=== PATIENT | female | born 1990 | race Caucasian/White ===

== ENCOUNTER 2021-03-25 23:51 | Observation (INO) | payer BC | END 2021-03-26 00:53 | disposition home or self-care (01) | LOC: JD.OB 23:51 → UNDOADMOB 23:51 → JD.OB 23:57 | PROVIDERS: ADMIT Obstetrics & Gynecology; ATTEND Obstetrics & Gynecology | DX: O99.891 Other specified diseases and conditions complicating pregnancy (principal); R39.15 Urgency of urination; R35.0 Frequency of micturition; Z3A.30 30 weeks gestation of pregnancy | CPT/HCPCS: 59025; 81001; 84112 ==

== ENCOUNTER 2021-04-19 11:27 | Inpatient (IN) | payer BC ==
[2021-04-19] MEDS ORDERED: Ondansetron 4 MG/2 ML SDV IVPUSH PRN ×2 (11:44→17:57)
[2021-04-19] MEDS ORDERED: Nalbuphine 10 MG/1 ML Vial IVPUSH PRN (11:44)
[2021-04-19] MEDS ORDERED: Misoprostol 100 MCG Tab VAG STA (11:44)
[2021-04-19] MEDS ORDERED: Sodium Chloride 0.9% 10 ML Syringe FLUSH PRN (11:44)
[2021-04-19] MEDS ORDERED: Oxytocin/Lactated Ringers 10 UNIT/1,000 ML BAG IV SCH ×2 (11:45)
[2021-04-19] MEDS ORDERED: Misoprostol 25 MCG (1/4 of 100 MCG) Tab VAG ONE (12:25)
[2021-04-19] MEDS: Lactated Ringers 1,000 ML IV SCH ×2 (14:19→16:21)
[2021-04-19] MEDS ORDERED: Acetaminophen 325 MG Tab PO ONE (14:30)
[2021-04-19] MEDS ORDERED: Metoclopramide 10 MG/2 ML SDV IVPUSH ONE (16:15)
[2021-04-19] MEDS ORDERED: Azithromycin 500 MG in Sodium Chloride 0.9% 250 ML IV ONE (16:15)
[2021-04-19] MEDS ORDERED: Citric Acid/Sodium Citrate Solution 30 ML Cup PO ONE (16:15)
[2021-04-19] MEDS ORDERED: ceFAZolin 2 GM in Sodium Chloride 0.9% 100 ML IV STA (16:19)
[2021-04-19] MEDS ORDERED: ceFAZolin 2 GM in Premix Bag 1 BAG IV STA (16:19)
[2021-04-19] MEDS ORDERED: Morphine PF 10 MG/10 ML SDV ONE (16:20)
[2021-04-19] MEDS ORDERED: Lactated Ringers 1,000 ML ONE (16:21)
[2021-04-19] MEDS ORDERED: Ketorolac 30 MG/ML SDV ONE (16:21)
[2021-04-19] MEDS ORDERED: Ondansetron 4 MG/2 ML SDV ONE (16:21)
[2021-04-19] MEDS ORDERED: Oxytocin 10 Units/1 ML SDV ONE (16:21)
[2021-04-19] MEDS ORDERED: ceFAZolin 1 GM Vial ONE (16:21)
[2021-04-19] MEDS ORDERED: fentaNYL 100 MCG/2 ML SDV IVPUSH PRN (17:57)
[2021-04-19] MEDS ORDERED: Meperidine 50 MG/ML Vial IVPUSH PRN (17:57)
[2021-04-19] MEDS ORDERED: diphenhydrAMINE 50 MG/ML SDV IVPUSH PRN ×2 (17:57→18:53)
[2021-04-19] MEDS ORDERED: Ondansetron 4 MG/2 ML SDV IV PRN (18:53)
[2021-04-19] MEDS ORDERED: Naloxone 0.4 MG/ML SDV IVPUSH PRN (18:53)
[2021-04-19] MEDS ORDERED: Acetaminophen/oxyCODONE 325-5 MG Tab PO PRN (18:53)
[2021-04-19] MEDS ORDERED: Dextrose 5%-Lactated Ringers 1,000 ML IV SCH (18:53)
[2021-04-19] MEDS ORDERED: Sodium Chloride 0.9% 10 ML Syringe FLUSH SCH (21:00)
[2021-04-19] MEDS: Ketorolac 30 MG/ML SDV IVPUSH SCH (23:35)
[2021-04-20] MEDS: Ketorolac 30 MG/ML SDV IVPUSH SCH ×2 (05:37→11:14)
[2021-04-20] MEDS: Docusate Sodium 100 MG Cap PO PRN ×2 (14:07→21:11)
[2021-04-20] MEDS: Acetaminophen/oxyCODONE 325-5 MG Tab PO PRN ×2 (14:07→21:11)
[2021-04-20] MEDS: Ibuprofen 600 MG Tab PO PRN (17:28)
[2021-04-21] MEDS: Acetaminophen/oxyCODONE 325-5 MG Tab PO PRN ×2 (09:09→21:39)
[2021-04-21] MEDS: Docusate Sodium 100 MG Cap PO PRN ×2 (09:09→21:39)
[2021-04-21] MEDS: Simethicone 80 MG Tab.Chew PO SCH ×4 (09:09→21:39)
[2021-04-21] MEDS: Ibuprofen 600 MG Tab PO PRN (12:21)
[2021-04-22] MEDS: Ibuprofen 600 MG Tab PO PRN (08:58)
[2021-04-22] MEDS: Simethicone 80 MG Tab.Chew PO SCH ×2 (08:58→12:17)
[2021-04-22] MEDS ORDERED: Bisacodyl 10 MG Supp RECTAL ONE (09:52)
== END 2021-04-22 13:00 | disposition home or self-care (01) | DRG 540 ==
LOC: JD.OBCHECK 11:27 → JD.OB 11:30 → JD.OBCHECK 11:51 → JD.OB 11:52 → OBSVTOIN 17:12 → JD.OB 17:13
PROVIDERS: ADMIT Obstetrics & Gynecology; ATTEND Obstetrics & Gynecology
PROC: 10D00Z1 Extraction of Products of Conception, Low, Open Approach (ICD-10-PCS; principal; 2021-04-19)
DX: O42.92 Full-term premature rupture of membranes, unspecified as to length of time between rupture and onset of labor (principal); Z37.0 Single live birth; O99.02 Anemia complicating childbirth; D62 Acute posthemorrhagic anemia; O76 Abnormality in fetal heart rate and rhythm complicating labor and delivery; R14.0 Abdominal distension (gaseous); O99.892 Other specified diseases and conditions complicating childbirth; Z20.822 Contact with and (suspected) exposure to COVID-19; Z3A.37 37 weeks gestation of pregnancy
CPT/HCPCS: 01961; 36415; 59025; 80053; 85027; 86592; 86850; 86900; 86901; 94762; A9270-GY; J0456; J0690; J1885; J2274; J2405; J2590; J2765; J7050; J7120; J7121; U0002

== ENCOUNTER 2022-01-13 19:36 | Emergency (ER) | payer BC ==
[2022-01-13] MEDS ORDERED: Bacitracin/Neomycin/Polymyxin B Oint 15 GM Tube TOP ONE (20:17)
== END 2022-01-13 20:39 | disposition home or self-care (01) ==
LOC: JD.ED 19:36
DX: T23.102A Burn of first degree of left hand, unspecified site, initial encounter (principal); X11.8XXA Contact with other hot tap-water, initial encounter; Y93.G3 Activity, cooking and baking
CPT/HCPCS: 99283

== ENCOUNTER 2023-08-30 21:04 | Observation (INO) | payer BC ==
[2023-08-30 21:31] LABS: APPEARANCE,URINE CLEAR (Clear); BILIRUBIN,URINE NEGATIVE (Negative); COLOR,URINE LIGHT YELLOW (Yellow); GLUCOSE,URINE NEGATIVE (Negative); KETONES,URINE NEGATIVE (Negative); LEUKOCYTE ESTERASE,URINE NEGATIVE (Negative); NITRITE,URINE NEGATIVE (Negative); OCCULT BLOOD,URINE NEGATIVE (Negative); PROTEIN,URINE NEGATIVE (Negative); UROBILINOGEN,URINE 0.2 (0.2-1.0)
[2023-08-30 21:44] LABS: BACTERIA,URINE RARE /hpf (FEW); MUCUS,URINE NOT SEEN /hpf (FEW); RBC,URINE 0-5 /hpf (0-5); SQUAMOUS EPITHELIAL CELLS,UR 0-5 /hpf (0-5); WBC,URINE 0-5 /hpf (0-5)
[2023-08-30] MEDS ORDERED: Sodium Chloride 0.9% 10 ML Syringe FLUSH PRN (22:02)
[2023-08-30 22:13] LABS: BASOPHILS PERCENT AUTO 0.4 % (0.0-1.0); EOSINOPHILS PERCENT AUTO 0.3 % (0.0-6.0); HEMATOCRIT 33.4 % (37.0-47.0); HEMOGLOBIN 11.3 gm/dl (12.0-16.0); IMMATURE GRAN ABSOLUTE AUTO 0.04 K/mm3 (0.00-0.05); IMMATURE GRAN PERCENT AUTO 0.4 % (0.0-0.4); LYMPHOCYTES ABSOLUTE AUTO 1.6 K/mm3 (1.0-4.8); LYMPHOCYTES PERCENT AUTO 16.3 % (24.0-44.0); MEAN CORPUSCULAR HEMOGLOBIN 29.4 pg (28.0-32.0); MEAN CORPUSCULAR HGB CONC 33.8 g/dl (32.0-36.0); MEAN CORPUSCULAR VOLUME 86.8 fl (83.0-99.0); MEAN PLATELET VOLUME 10.1 fl (9.4-12.3); MONOCYTES ABSOLUTE AUTO 0.7 K/mm3 (0.0-0.8); MONOCYTES PERCENT AUTO 6.9 % (0.0-8.0); NEUTROPHILS ABSOLUTE AUTO 7.6 K/mm3 (1.8-7.7); NEUTROPHILS PERCENT AUTO 75.7 % (41.0-71.0); PLATELET COUNT,PLT 175 K/mm3 (150-400); RED BLOOD CELL COUNT 3.85 M/mm3 (4.10-5.30); WHITE BLOOD CELL COUNT,WBC 10.06 K/mm3 (3.9-11.3)
[2023-08-30] MEDS: Lactated Ringers 1,000 ML IV SCH (22:22)
[2023-08-30] MEDS: HYDROmorphone 1 MG/ML Syringe IV ONE (22:34)
[2023-08-30 22:36] LABS: A/G RATIO 0.7 (1-2); ALBUMIN 2.7 g/dl (3.4-5.0); ANION GAP 14.9 (5-15); BILIRUBIN TOTAL 0.2 mg/dL (0.2-1.0); CALCIUM 9.7 mg/dL (8.5-10.1); CREATININE 0.5 mg/dL (0.55-1.02); EST CRCL DRUG DOSING (CG) 138.19 mL/min; POTASSIUM,K 3.9 mEq/L (3.5-5.1); PROTEIN TOTAL,TP 6.8 g/dl (6.4-8.2)
[2023-08-31] MEDS ORDERED: HYDROmorphone 1 MG/ML Syringe IM ONE (02:05)
[2023-08-31] MEDS: Ondansetron 4 MG/2 ML SDV IVPUSH ONE (02:19)
[2023-08-31] MEDS: HYDROmorphone 1 MG/ML Syringe IV ONE (02:44)
[2023-08-31] MEDS: Ondansetron 4 MG/2 ML SDV IVPUSH PRN (07:28)
[2023-08-31 07:32] LABS: BASOPHILS PERCENT AUTO 0.2 % (0.0-1.0); EOSINOPHILS PERCENT AUTO 0.1 % (0.0-6.0); HEMATOCRIT 31.4 % (37.0-47.0); HEMOGLOBIN 10.4 gm/dl (12.0-16.0); IMMATURE GRAN ABSOLUTE AUTO 0.04 K/mm3 (0.00-0.05); IMMATURE GRAN PERCENT AUTO 0.5 % (0.0-0.4); LYMPHOCYTES ABSOLUTE AUTO 1.2 K/mm3 (1.0-4.8); LYMPHOCYTES PERCENT AUTO 13.5 % (24.0-44.0); MEAN CORPUSCULAR HEMOGLOBIN 29.1 pg (28.0-32.0); MEAN CORPUSCULAR HGB CONC 33.1 g/dl (32.0-36.0); MEAN CORPUSCULAR VOLUME 87.7 fl (83.0-99.0); MEAN PLATELET VOLUME 9.7 fl (9.4-12.3); MONOCYTES ABSOLUTE AUTO 0.5 K/mm3 (0.0-0.8); MONOCYTES PERCENT AUTO 5.8 % (0.0-8.0); NEUTROPHILS ABSOLUTE AUTO 6.9 K/mm3 (1.8-7.7); NEUTROPHILS PERCENT AUTO 79.9 % (41.0-71.0); PLATELET COUNT,PLT 152 K/mm3 (150-400); RED BLOOD CELL COUNT 3.58 M/mm3 (4.10-5.30); WHITE BLOOD CELL COUNT,WBC 8.67 K/mm3 (3.9-11.3)
[2023-08-31 07:53] LABS: A/G RATIO 0.6 (1-2); ALBUMIN 2.3 g/dl (3.4-5.0); ANION GAP 11.7 (5-15); BILIRUBIN TOTAL 0.2 mg/dL (0.2-1.0); BUN/CREATININE RATIO 16.7 (14-18); CALCIUM 8.6 mg/dL (8.5-10.1); CREATININE 0.3 mg/dL (0.55-1.02); EST CRCL DRUG DOSING (CG) 230.32 mL/min; POTASSIUM,K 3.7 mEq/L (3.5-5.1)
[2023-08-31] MEDS: HYDROmorphone 1 MG/ML Syringe IVPUSH PRN (11:32)
[2023-08-31] MEDS ORDERED: Acetaminophen/oxyCODONE 325-5 MG Tab PO PRN (12:58)
[2023-08-31] MEDS: Docusate Sodium 100 MG Cap PO SCH (15:03)
[2023-08-31] MEDS: Sodium Chloride 0.9% 10 ML Syringe FLUSH SCH (15:04)
[2023-08-31] MEDS: Acetaminophen 325 MG Tab PO PRN (15:29)
[2023-08-31 16:30] LABS: AMYLASE 63 U/L (25-115); LIPASE 48 U/L (16-77)
[2023-08-31] MEDS ORDERED: Promethazine 25 MG Supp RECTAL PRN (17:42)
[2023-08-31] MEDS: Acetaminophen 650 MG Supp RECTAL PRN (18:12)
[2023-08-31 19:02] LABS: INR 0.96; PROTHROMBIN TIME 10.2 SECONDS (9.7-12.0)
== END 2023-09-01 08:58 | disposition home or self-care (01) ==
LOC: JD.OBCHECK 21:04 → JD.OB 21:05 → JD.OBCHECK 08-31 16:15 → JD.OB 08-31 16:16
PROVIDERS: ADMIT Obstetrics & Gynecology; ATTEND Obstetrics & Gynecology
DX: O99.891 Other specified diseases and conditions complicating pregnancy (principal); R10.30 Lower abdominal pain, unspecified; Z3A.29 29 weeks gestation of pregnancy
CPT/HCPCS: 36415; 59025; 74176; 76770; 76815; 80053; 81001; 82150; 83615; 83690; 85025; 85384; 85610; 85730; 96360; 96361; 96374; 96376; A9270; G0378; J1170; J2405; J7120

== ENCOUNTER 2023-11-07 05:34 | Inpatient (IN) | payer BC ==
[~2023-11-07 05:34] MED LIST: Citric Acid/Sodium Citrate Solution 30 ML Cup PO ONE; Lactated Ringers 1,000 ML IV SCH; Oxytocin/Lactated Ringers 30 UNIT/500 ML BAG IV SCH; Sodium Chloride 0.9% 10 ML Syringe FLUSH PRN
[2023-11-07] MEDS ORDERED: Oxytocin/0.9 % Sodium Chloride 30 UNIT/500 ML BAG IV SCH (05:45)
[2023-11-07] MEDS: Lactated Ringers 1,000 ML IV SCH ×2 (05:54→17:49)
[2023-11-07 06:35] LABS: BASOPHILS PERCENT AUTO 0.4 % (0.0-1.0); EOSINOPHILS PERCENT AUTO 0.2 % (0.0-6.0); HEMATOCRIT 35.2 % (37.0-47.0); HEMOGLOBIN 11.6 gm/dl (12.0-16.0); IMMATURE GRAN ABSOLUTE AUTO 0.04 K/mm3 (0.00-0.05); IMMATURE GRAN PERCENT AUTO 0.5 % (0.0-0.4); LYMPHOCYTES ABSOLUTE AUTO 1.7 K/mm3 (1.0-4.8); LYMPHOCYTES PERCENT AUTO 20.3 % (24.0-44.0); MEAN CORPUSCULAR HEMOGLOBIN 28.6 pg (28.0-32.0); MEAN CORPUSCULAR VOLUME 86.9 fl (83.0-99.0); MEAN PLATELET VOLUME 11.2 fl (9.4-12.3); MONOCYTES ABSOLUTE AUTO 0.5 K/mm3 (0.0-0.8); MONOCYTES PERCENT AUTO 5.8 % (0.0-8.0); NEUTROPHILS ABSOLUTE AUTO 6.1 K/mm3 (1.8-7.7); NEUTROPHILS PERCENT AUTO 72.8 % (41.0-71.0); PLATELET COUNT,PLT 162 K/mm3 (150-400); RED BLOOD CELL COUNT 4.05 M/mm3 (4.10-5.30); WHITE BLOOD CELL COUNT,WBC 8.33 K/mm3 (3.9-11.3)
[2023-11-07] MEDS ORDERED: ceFAZolin 2 GM Vial ONE (07:04)
[2023-11-07] MEDS ORDERED: ePHEDrine 50 MG/ML SDV ONE (07:04)
[2023-11-07] MEDS ORDERED: Ketorolac 30 MG/ML SDV ONE (07:04)
[2023-11-07] MEDS ORDERED: Morphine PF 10 MG/10 ML SDV ONE (07:07)
[2023-11-07] MEDS: Citric Acid/Sodium Citrate Solution 30 ML Cup PO ONE (07:20)
[2023-11-07] MEDS: Metoclopramide 10 MG/2 ML SDV IVPUSH ONE (07:21)
[2023-11-07] MEDS ORDERED: Lactated Ringers 1,000 ML ONE (07:29)
[2023-11-07] MEDS ORDERED: Bupivacaine 0.25% 10 ML SDV ONE (08:38)
[2023-11-07] MEDS: Bupivacaine 0.25% 10 ML SDV ONE (08:45)
[2023-11-07] MEDS ORDERED: diphenhydrAMINE 50 MG/ML SDV IVPUSH PRN ×2 (09:06→09:09)
[2023-11-07] MEDS ORDERED: fentaNYL 100 MCG/2 ML SDV IVPUSH PRN (09:06)
[2023-11-07] MEDS ORDERED: Bisacodyl 10 MG Supp RECTAL PRN (09:09)
[2023-11-07] MEDS ORDERED: ePHEDrine 50 MG/ML SDV IVPUSH PRN (09:09)
[2023-11-07] MEDS ORDERED: Naloxone 0.4 MG/ML SDV IVPUSH PRN (09:09)
[2023-11-07] MEDS: Ondansetron 4 MG/2 ML SDV IVPUSH PRN ×2 (09:14→13:51)
[2023-11-07] MEDS ORDERED: Ibuprofen 600 MG Tab PO SCH (09:15)
[2023-11-07 09:19] LABS: APPEARANCE,URINE CLEAR (Clear); BILIRUBIN,URINE NEGATIVE (Negative); COLOR,URINE PINK (Yellow); GLUCOSE,URINE NEGATIVE (Negative); KETONES,URINE NEGATIVE (Negative); LEUKOCYTE ESTERASE,URINE NEGATIVE (Negative); NITRITE,URINE NEGATIVE (Negative); OCCULT BLOOD,URINE 3+ (Negative); PH,URINE 5.5 (5.0-8.0); PROTEIN,URINE NEGATIVE (Negative); UROBILINOGEN,URINE 0.2 (0.2-1.0)
[2023-11-07 09:27] LABS: BACTERIA,URINE FEW /hpf (FEW); EPITHELIAL CELLS,URINE 0-5 /hpf (0-5); MUCUS,URINE MODERATE /hpf (FEW); RBC,URINE >100 /hpf (0-5); WBC,URINE 0-5 /hpf (0-5)
[2023-11-07] MEDS: Sertraline 50 MG Tab PO SCH (10:16)
[2023-11-07] MEDS: Docusate Sodium 100 MG Cap PO SCH (10:16)
[2023-11-07] MEDS: Acetaminophen 325 MG Tab PO SCH (10:16)
[2023-11-07] MEDS: ceFAZolin 2 GM in Sodium Chloride 0.9% 50 ML IV ONE ×2 (11:34→11:35)
[2023-11-07] MEDS: Metoclopramide 10 MG/2 ML SDV IM ONE (11:34)
[2023-11-07] MEDS: Sodium Chloride 0.9% 10 ML Syringe FLUSH SCH (11:35)
[2023-11-07] MEDS: Ibuprofen 600 MG Tab PO SCH (13:06)
[2023-11-07] MEDS: Dextrose 5%-Lactated Ringers 1,000 ML IV SCH (13:08)
[2023-11-07] MEDS: Metoclopramide 10 MG/2 ML SDV IVPUSH PRN (17:44)
[2023-11-07] MEDS: Ketorolac 30 MG/ML SDV IVPUSH PRN (20:13)
[2023-11-08] MEDS: oxyCODONE 5 MG Tab PO PRN (05:46)
[2023-11-08] MEDS: Simethicone 80 MG Tab.Chew PO PRN (06:14)
[2023-11-08 06:56] LABS: HEMATOCRIT 29.5 % (37.0-47.0); MEAN CORPUSCULAR HEMOGLOBIN 28.5 pg (28.0-32.0); MEAN CORPUSCULAR HGB CONC 31.9 g/dl (32.0-36.0); MEAN CORPUSCULAR VOLUME 89.4 fl (83.0-99.0); PLATELET COUNT,PLT 175 K/mm3 (150-400); WHITE BLOOD CELL COUNT,WBC 8.23 K/mm3 (3.9-11.3)
[2023-11-08 06:57] LABS: HEMOGLOBIN 9.4 gm/dl (12.0-16.0)
[2023-11-08] MEDS: Magnesium Hydroxide 400 MG/5 ML Susp 30 ML Cup PO PRN (21:23)
== END 2023-11-10 10:30 | disposition home or self-care (01) | DRG 540 ==
LOC: JD.OB 05:34
PROVIDERS: ADMIT Obstetrics & Gynecology; ATTEND Obstetrics & Gynecology
PROC: 10D00Z1 Extraction of Products of Conception, Low, Open Approach (ICD-10-PCS; principal; 2023-11-07 07:30)
DX: O34.211 Maternal care for low transverse scar from previous cesarean delivery (principal); O71.5 Other obstetric injury to pelvic organs; O99.344 Other mental disorders complicating childbirth; F41.9 Anxiety disorder, unspecified; O77.0 Labor and delivery complicated by meconium in amniotic fluid; Z3A.39 39 weeks gestation of pregnancy; Z37.0 Single live birth; Z98.890 Other specified postprocedural states
CPT/HCPCS: 01961; 36415; 59025; 81001; 85025; 85027; 86592; 86850; 86900; 86901; A9270-GY; J0665; J0690; J1885; J2274; J2405; J2765; J3490; J7120; J7121; J7999